=== PATIENT | female | born 1995 | race Caucasian/White ===

== ENCOUNTER 2018-09-30 18:42 | Emergency (ER) | payer OTHER ==
[2018-09-30 18:51] VITALS: BP 151/104
[2018-09-30] MEDS ORDERED: IPRATROPIUM/ALBUTEROL 3 ML NEB INH STA (18:58)
[2018-09-30] MEDS ORDERED: AZITHROMYCIN 250 MG TABLET PO STA (18:59)
[2018-09-30] MEDS ORDERED: predniSONE 20 MG TABLET PO STA (18:59)
--- NOTE | 2018-09-30 18:59 | ED Physician Documentation ---
History of Present Illness - Stated complaint Stated Complaint: CONGESTION - Chief complaint Chief Complaint: Resp - History obtained from History obtained from: Patient - History of Present Illness Timing: Other (23-year-old woman with history of what sounds like asthmatic bronchitis presents with a 5-day illness with productive cough, wheezing, shortness of breath, nasal congestion and sinus pain. No fevers. No possibility of pregnancies.) Review of Systems Constitutional: denies: Fever, Chills Nose: reports: Rhinorrhea / runny nose, Congestion, Sinus pressure / pain. denies: Epistaxis, Foreign Body Throat: denies: Sore throat Respiratory: reports: Dyspnea, Cough, Wheezing. denies: Hemoptysis GI: denies: Abdominal Pain PD PAST MEDICAL HISTORY - Present Medications Home Medications: Ambulatory Orders Medication Instructions Recorded Confirmed RX: Albuterol Sulf [Ventolin Hfa 1 - 2 puffs INH Q4HR PRN #1 inhaler 09/30/18 Inhaler] RX: Azithromycin 1 tab PO DAILY #4 tablet 09/30/18 RX: predniSONE [Deltasone] 60 mg PO DAILY 5 Days tablet 09/30/18 guaiFENesin/CODEINE [Robitussin AC] 5 - 10 ml PO Q6H PRN #120 ml 09/30/18 - Allergies Allergies/Adverse Reactions: Allergies Allergy/AdvReac Type Severity Reaction Status Date / Time Penicillins Allergy Unknown Verified 09/30/18 18:51 PD ED PE NORMAL - Vitals Vital signs reviewed: Yes - General General: Alert and oriented X 3, No acute distress - HEENT HEENT: PERRL, EOMI, Ears normal, Other (Mild tenderness to both maxillary sinuses, oropharynx is normal) - Neck Neck: Supple, no meningeal sign, No bony TTP - Cardiac Cardiac: RRR, No murmur - Respiratory Respiratory: No respiratory distress, Other (Diffusely wheezy and rhonchorous throughout with fair air motion, no focal findings.) - Abdomen Abdomen: Non tender - Back Back: No CVA TTP, No spinal TTP - Derm Derm: No rash - Neuro Neuro: Alert and oriented X 3, Normal speech Results - Vitals Vitals: Vital Signs - 24 hr 09/30/18 09/30/18 18:46 19:08 Temperature 37.5 C Heart Rate 113 H 78 Respiratory 18 20 Rate Blood Pressure 151/104 H O2 Saturation 97 Oxygen O2 Source Room air PD MEDICAL DECISION MAKING - ED course ED course: 23-year-old woman presents with asthmatic bronchitis and sinusitis, treated with steroids, albuterol, and Zithromax as well as codeine. Departure - Departure Disposition: 01 Home, Self Care Clinical Impression: Bronchitis, Sinusitis Condition: Good Record reviewed to determine appropriate education?: Yes Instructions: ED Bronchitis Asthmatic, ED Sinusitis Abx Tx Prescriptions: RX: Albuterol Sulf [Ventolin Hfa Inhaler] 1 - 2 puffs INH Q4HR PRN #1 inhaler PRN Reason: Shortness Of Air/Wheezing RX: Azithromycin 1 tab PO DAILY #4 tablet guaiFENesin/CODEINE [Robitussin AC] 5 - 10 ml PO Q6H PRN #120 ml PRN Reason: Cough RX: predniSONE [Deltasone] 60 mg PO DAILY 5 Days tablet Comments: Followup with your physician in about 1 week. Return for new or worsening symptoms. Discharge Date/Time: 09/30/18 19:31
== END 2018-09-30 19:31 | disposition home or self-care (01) ==
LOC: ED 18:42
DX: J40 Bronchitis, not specified as acute or chronic (principal); J32.9 Chronic sinusitis, unspecified; Z88.0 Allergy status to penicillin
CPT/HCPCS: 94640; 99283; A9270; J7512

== ENCOUNTER 2019-06-10 13:51 | Emergency (ER) | payer OTHER ==
--- NOTE | 2019-06-10 14:33 | ED Physician Documentation ---
PD HPI URI - Stated complaint Stated Complaint: SORE THROAT - Chief complaint Chief Complaint: Heent - History obtained from History obtained from: Patient - History of Present Illness Timing - onset: How many days ago (4-5) Timing duration: Days (4-5) Timing details: Gradual onset, Still present Associated symptoms: Chills, Sore throat. No: Fever, Nasal congestion, Dry cough, Productive cough Contributing factors: Sick contact (sister was sick last week with bronchitis. She traveled to [place] and returned 1 1/2 weeks ago.), Travel Similar symptoms before: Has not had sx before Recently seen: Not recently seen Review of Systems Constitutional: reports: Fever Nose: denies: Congestion Throat: reports: Sore throat Respiratory: denies: Cough GI: denies: Nausea, Vomiting, Diarrhea Skin: denies: Rash Neurologic: denies: Altered mental status PD PAST MEDICAL HISTORY - Past Medical History Past Medical History: No - Past Surgical History Past Surgical History: Yes - Present Medications Home Medications: Ambulatory Orders Medication Instructions Recorded Confirmed Albuterol Sulf [Ventolin Hfa 1 - 2 puffs INH Q4HR PRN #1 inhaler 09/30/18 Inhaler] Azithromycin 1 tab PO DAILY #4 tablet 09/30/18 guaiFENesin/CODEINE [Robitussin AC] 5 - 10 ml PO Q6H PRN #120 ml 09/30/18 predniSONE [Deltasone] 60 mg PO DAILY 5 Days tablet 09/30/18 Benzonatate [Tessalon Perle] 100 mg PO TID PRN #20 capsule 06/10/19 dexAMETHasone [Decadron] 4 mg PO DAILY #5 tablet 06/10/19 guaiFENesin/CODEINE [Robitussin AC] 10 ml PO Q6H PRN #240 ml 06/10/19 - Allergies Allergies/Adverse Reactions: Allergies Allergy/AdvReac Type Severity Reaction Status Date / Time Penicillins Allergy Unknown Verified 06/10/19 13:57 - Social History Does the pt smoke?: No Smoking Status: Never smoker Does the pt drink ETOH?: No Does the pt have substance abuse?: No - Immunizations Immunizations are current?: Yes PD ED PE NORMAL - Vitals Vital signs reviewed: Yes - General General: Alert and oriented X 3, No acute distress, Well developed/nourished - HEENT HEENT: Ears normal, Moist mucous membranes. No: Pharynx benign (some redness tonsil area without exudate. No peritonsillar swellin noted. ) - Neck Neck: Supple, no meningeal sign, No adenopathy - Cardiac Cardiac: RRR, No murmur - Respiratory Respiratory: Clear bilaterally - Derm Derm: Normal color, Warm and dry, No rash - Neuro Neuro: Alert and oriented X 3, No motor deficit, Normal speech Results - Vitals Vitals: Vital Signs - 24 hr 06/10/19 06/10/19 13:57 15:41 Temperature 36.7 C Heart Rate 82 83 Respiratory 15 18 Rate Blood Pressure 170/102 H 161/96 H O2 Saturation 98 96 Oxygen O2 Source Room air - Labs Labs: Microbiology 06/10/19 14:03 Group A Strep Throat Culture - Preliminary Throat CULTURE IN PROGRESS. RESULTS TO FOLLOW. Laboratory Tests 06/10/19 14:03 Group A Strep Rapid Negative PD MEDICAL DECISION MAKING - ED course Complexity details: considered differential (clinically does not look like strep and has negative rapid test. ), d/w patient Departure - Departure Disposition: 01 Home, Self Care Clinical Impression: Pharyngitis Qualifiers: Pharyngitis/tonsillitis etiology: unspecified etiology Qualified Code(s): J02.9 - Acute pharyngitis, unspecified Condition: Stable Record reviewed to determine appropriate education?: Yes Instructions: ED Pharyngitis Viral Prescriptions: Benzonatate [Tessalon Perle] 100 mg PO TID PRN #20 capsule PRN Reason: Cough dexAMETHasone [Decadron] 4 mg PO DAILY #5 tablet guaiFENesin/CODEINE [Robitussin AC] 10 ml PO Q6H PRN #240 ml PRN Reason: Cough Comments: Your rapid strep test is negative. The culture of that will result in a couple of days to tell if any other bacterial cause. At this point we will presume a viral illness and treated with Decadron steroid anti-inflammatory and also Tessalon or codeine cough syrup as needed for the discomfort. Discharge Date/Time: 06/10/19 15:59
[2019-06-10] MEDS ORDERED: DEXAMETHASONE 10 MG/ML VIAL PO STA (14:56)
[2019-06-10] MEDS ORDERED: BENZONATATE 100 MG CAPSULE PO STA (14:56)
[2019-06-10] MEDS ORDERED: CHERRY SYRUP 10 ML UDC PO ONE (14:56)
[2019-06-10 15:16] LABS: RAPID STREP SCREEN Negative (Negative)
[2019-06-10 15:41] VITALS: BP 161/96
== END 2019-06-10 15:59 | disposition home or self-care (01) ==
LOC: ED 13:51
DX: J02.9 Acute pharyngitis, unspecified (principal)
CPT/HCPCS: 87070; 87430; 99283; A9270